=== PATIENT | female | born 1995 | race Caucasian/White ===

== ENCOUNTER → 2024-01-12 | Outpatient (REF) ==
[2024-01-13 13:43] LABS: RUBEOLA IgG ANTIBODY > 300.00 AU/mL (>16.49)
[2024-01-15 12:02] LABS: QuantiFERON-TB Gold Plus NEGATIVE (NEGATIVE)
== END ==
LOC: M LAB 12:57
PROVIDERS: ATTEND Family Medicine
DX: Z02.89 Encounter for other administrative examinations (principal)

== ENCOUNTER 2024-05-25 14:18 | Emergency (ER) | payer OTHER ==
[~2024-05-25] VITALS: Ht 160 cm; Wt 54.3 kg
[2024-05-25 14:21] VITALS: BP 110/68; TEMP 97.7; O2SAT 100
[2024-05-25 14:53] LABS: BASO % 0.5 % (0.0-1.0); EOS # 0.1 10^3/uL (0.0-0.5); EOS % 1.2 % (0.0-3.0); HEMATOCRIT 41.2 % (36.0-47.0); HEMOGLOBIN 13.7 g/dl (12.0-15.5); LYMPH # 2.5 10^3/uL (1.5-5.0); LYMPH % 32.9 % (24.0-44.0); MEAN CORPUSCULAR HEMOGLOBIN 28.9 pg (27.0-33.0); MEAN CORPUSCULAR HGB CONC 33.3 g/dl (32.0-36.5); MEAN CORPUSCULAR VOLUME 86.9 fl (80.0-96.0); MONO # 0.3 10^3/uL (0.0-0.8); NEUTROPHILS # 4.7 10^3/uL (1.5-8.5); NEUTROPHILS % 61.1 % (36.0-66.0); PLATELET COUNT, AUTOMATED 234 10^3/uL (150-450); RED BLOOD COUNT 4.74 10^6/uL (4.00-5.40); WHITE BLOOD COUNT 7.7 10^3/uL (4.0-10.0)
[2024-05-25 15:21] LABS: ALKALINE PHOSPHATASE 50 U/L (35-104); ALT/SGPT 11 U/L (7.0-40); AST/SGOT 16 U/L (<34); BILIRUBIN,TOTAL 0.7 MG/DL (0.3-1.2); BLOOD UREA NITROGEN 18 MG/DL (9-23); CALCIUM LEVEL 9.6 MG/DL (8.5-10.1); CARBON DIOXIDE LEVEL 25 MMOL/L (20-31); CHLORIDE LEVEL 105 MMOL/L (98-107); CREATININE FOR GFR 0.63 MG/DL (0.55-1.30); GLOMERULAR FILTRATION RATE > 60.0 (>60); GLUCOSE, FASTING 88 MG/DL (60-100); POTASSIUM SERUM 3.9 MMOL/L (3.5-5.1); SODIUM LEVEL 139 MMOL/L (136-145); TOTAL PROTEIN 7.5 G/DL (5.7-8.2)
[2024-05-25 15:29] LABS: HEPATITIS B SURFACE ANTIBODY POSITIVE (POSITIVE)
[2024-05-25 15:34] LABS: HCG, SERUM QUALITATIVE NEGATIVE (NEGATIVE)
[2024-05-25 15:40] LABS: HEPATITIS B SURFACE ANTIGEN NEGATIVE (NEGATIVE)
[2024-05-25 15:53] LABS: HIV SCREEN CENTAUR EXPOSED NEGATIVE (NEGATIVE)
[2024-05-25 16:01] LABS: HEPATITIS C VIRUS ABY INDEX 0.04 INDEX (<0.8)
== END 2024-05-25 15:47 | disposition home or self-care (01) ==
LOC: M ED 14:18
DX: Z77.21 Contact with and (suspected) exposure to potentially hazardous body fluids (principal); S61.432A Puncture wound without foreign body of left hand, initial encounter; W46.0XXA Contact with hypodermic needle, initial encounter; Y92.239 Unspecified place in hospital as the place of occurrence of the external cause; Y93.89 Activity, other specified; Y99.0 Civilian activity done for income or pay